=== PATIENT | male | born 1965 | race Caucasian/White ===

== ENCOUNTER 2019-02-20 17:37 | Emergency (ER) | payer BC, OTHER ==
[~2019-02-20] VITALS: Ht 170.2 cm; Wt 88.0 kg
[~2019-02-20 17:37] MED LIST: NOR10 PO; PRO40 PO; SUCR1TAB78 PO
[2019-02-20 17:57] VITALS: BP_SYST 147
--- NOTE | 2019-02-20 18:06 | NUR ---
Placed in room 1 . Placed on monitoring tech, blood pressure machine and pulse oximeter. To gown for exam. Side rails up. Report given to Pavan WALTON.
--- NOTE | 2019-02-20 18:09 | NUR ---
ER PA HARMON at bedside examining patient.
[2019-02-20] MEDS ORDERED: ONDANSETRON HCL 4 MG/2 ML VIAL IVP ONE ×2 (18:15→20:45)
[2019-02-20] MEDS ORDERED: NACL 0.9% 1,000 ML IV ONE (18:15)
--- NOTE | 2019-02-20 18:22 | NUR ---
PATIENT CAME IN COMPLAINING OF NAUSEA AND VOMITING SINCE TUESDAY. PATIENT CURRENTLY VOMITING. PATIENT COMPLAINING OF PAIN 7/10IN EPIGASTRIC AREA. PATIENT HAS HISTORY OF GASTRITIS. PATIENT WENT TO URGENT CARE AND TOLD HIM POTASSIUM LOW BUT PATIENT NOT SURE HOW LOW. PATIENT LETHARGIC AND WEAK. PATIENT ALERT AND ORIENTED X4.
--- NOTE | 2019-02-20 18:45 | NUR ---
PATIENT GETTING LABS DRAWN AT BEDSIDE.
[2019-02-20] MEDS ORDERED: MORPHINE 4 MG/ML INJ. SYRINGE IVP ONE (19:15)
--- NOTE | 2019-02-20 19:15 | NUR ---
ENDORSED CARE TO ISABELLE CASTELLANOS.
--- NOTE | 2019-02-20 19:15 | NUR ---
Pt resting quietly, easily awakened. Pt c/o abdominal pain, to be medicated. VSS. Family member at bedside.
[2019-02-20 19:16] LABS: BASOPHILS # (AUTO) 0.1 K/uL (0.0-0.2); BASOPHILS % (AUTO) 0.7 % (0.0-2.0); HEMATOCRIT 46.6 % (36-54); HEMOGLOBIN 16.2 g/dL (14.0-18.0); LYMPHOCYTES # (AUTO) 0.6 K/uL (1.0-5.5); LYMPHOCYTES % (AUTO) 6.8 % (20.5-51.5); MEAN CORPUSCULAR HEMOGLOBIN 32 pg (27-31); MEAN CORPUSCULAR HGB CONC 35 % (32-36); MEAN CORPUSCULAR VOLUME 93 fL (79.0-98.0); MONOCYTES # (AUTO) 0.3 K/uL (0.0-1.0); MONOCYTES % (AUTO) 3.3 % (1.7-9.3); NEUTROPHILS # (AUTO) 7.3 K/uL (1.8-7.7); NEUTROPHILS % (AUTO) 89.2 % (40.0-70.0); PLATELET COUNT (AUTO) 192 K/uL (130-430); RED BLOOD CELL COUNT(AUTO) 5.01 MIL/uL (4.2-6.2); RED CELL DISTRIBUTION WIDTH 13.1 % (9.0-15.0); WHITE BLOOD COUNT (AUTO) 8.2 K/uL (4.8-10.8)
[2019-02-20 19:20] LABS: CALCIUM 9.1 mg/dL (8.4-11.0); CREATININE 0.82 mg/dL (0.55-1.30); TOTAL BILIRUBIN 1.2 mg/dL (0.0-1.0)
--- NOTE | 2019-02-20 19:20 | NUR ---
Upon awakening, pt c/o abdominal pain 01/27. Dr. Driver notified.
--- NOTE | 2019-02-20 19:29 | NUR ---
Pt to CT via stretcher in stable condition.
[2019-02-20 19:33] LABS: POTASSIUM 2.9 mmol/L (3.5-5.1)
--- NOTE | 2019-02-20 19:39 | NUR ---
Pt returns from CT. No needs verbalized at this time.
[2019-02-20] MEDS ORDERED: POTASSIUM CHLORIDE 20 MEQ/PKT PACKET PO ONE (20:15)
[2019-02-20 20:38] LABS: BILIRUBIN,URINE NEGATIVE (NEGATIVE); BLOOD, URINE 1+ (NEGATIVE); CLARITY/URINE SL HAZY (CLEAR); COLOR,URINE YELLOW (YELLOW); GLUCOSE,URINE NEGATIVE (NEGATIVE); KETONES,URINE 2+ (NEGATIVE); LEUKOCYTE ESTERASE ,URINE NEGATIVE (NEGATIVE); NITRITE, URINE NEGATIVE (NEGATIVE); PROTEIN URINE NEGATIVE (NEGATIVE)
--- NOTE | 2019-02-20 20:40 | NUR ---
Brody Townsend, PAC at bedside to update on POC.
[2019-02-20] MEDS ORDERED: MORPHINE 2 MG/ML INJ. SYRINGE IVP ONE (20:45)
--- NOTE | 2019-02-20 21:10 | NUR ---
Pt c/o abdominal pain 01/27. Dr. Driver notified.
[2019-02-20 21:21] LABS: BACTERIA,URINE None Seen /HPF (None Seen); WBC,URINE 0-3 /HPF (0-3)
[2019-02-20 21:22] LABS: URINE AMORPHOUS PHOSPHATES 2+ /HPF (None Seen)
[2019-02-20 21:50] VITALS: BP_SYST 122
--- NOTE | 2019-02-20 21:50 | NUR ---
Patient given written and verbal discharge instructions and verbalizes understanding. ER MD discussed with patient the results and treatment provided. Patient in stable condition. ID arm band removed. IV catheter removed intact and dressing applied, no active bleeding. Rx of Bentyl, Reglan, Protonix given. Patient educated on pain management and to follow up with PMD. Pain Scale 2/10. Opportunity for questions provided and answered. Medication side effect fact sheet provided.
== END 2019-02-20 21:50 | disposition home or self-care (01) ==
LOC: SED 17:37
DX: K29.50 Unspecified chronic gastritis without bleeding (principal); R11.10 Vomiting, unspecified; E87.6 Hypokalemia; K21.9 Gastro-esophageal reflux disease without esophagitis; I10 Essential (primary) hypertension; Z79.899 Other long term (current) drug therapy
CPT/HCPCS: 36415; 74176; 80053; 81000; 83690; 85025; 96361; 96374; 96375; 96376; 99284; J2270 ×2; J2405; J7030

== ENCOUNTER 2022-01-04 06:58 | Day surgery (SDC) | payer OTHER ==
[~2022-01-04] VITALS: Ht 170.2 cm; Wt 97.5 kg
[2022-01-04] MEDS ORDERED: CEFAZOLIN SOD 1 GM in D5W 50 ML IV ONE (07:00)
[2022-01-04] MEDS ORDERED: BUPIVACAINE LIPOSOME/PF 266 MG/20 ML VIAL INFIL ONE (10:13)
[2022-01-04] MEDS ORDERED: SEVOFLURANE 15 MIN GAS INH ONE (10:28)
[2022-01-04] MEDS ORDERED: NS IRRIG SOLN 1000 ML IR ONE (10:28)
[2022-01-04] MEDS ORDERED: GLYCOPYRROLATE 0.2 MG/ML VIAL IJ ONE (10:28)
[2022-01-04] MEDS ORDERED: KETOROLAC TROMETHAMINE 30 MG VIAL IVP ONE (10:28)
[2022-01-04] MEDS ORDERED: NEOSTIGMINE METHYLSULFATE 1 MG/ML, 10 ML VIAL IVP ONE (10:28)
[2022-01-04] MEDS ORDERED: BUPIVACAINE /EPINEPHRINE/PF 0.5% 30 ML VIAL INJ ONE (10:28)
[2022-01-04] MEDS ORDERED: LR 1,000 ML IV.SOLN IV ONE (10:28)
[2022-01-04] MEDS ORDERED: NORMAL SALINE 10 ML VIAL IVP ONE (10:28)
[2022-01-04] MEDS ORDERED: ROCURONIUM BROMIDE 10 MG/ML (ZEMURON) IV ONE (10:28)
[2022-01-04] MEDS ORDERED: ONDANSETRON HCL 4 MG/2 ML VIAL IVP PRN (11:45)
[2022-01-04] MEDS ORDERED: KETOROLAC TROMETHAMINE 30 MG VIAL IVP PRN (11:45)
[2022-01-04] MEDS ORDERED: HYDROmorphone 1 MG/ML INJ. CARTRIDGE IVP PRN ×2 (11:45→12:00)
[2022-01-04] MEDS ORDERED: LR 1,000 ML IV SCH (11:45)
[2022-01-04] MEDS ORDERED: HYDROcodone/ACETAMIN 5-325 MG TAB (NORCO/ VICODIN) PO PRN ×2 (12:00)
[2022-01-04 12:55] VITALS: BP_SYST 130
== END 2022-01-04 14:30 | disposition home or self-care (01) ==
LOC: SDS 06:58 → SMU 07:01 → SDS 14:30
PROVIDERS: ATTEND Colon & Rectal Surgery
DX: K64.2 Third degree hemorrhoids (principal); K64.8 Other hemorrhoids; I10 Essential (primary) hypertension; E78.5 Hyperlipidemia, unspecified; Z79.899 Other long term (current) drug therapy; Z20.822 Contact with and (suspected) exposure to COVID-19
CPT/HCPCS: 36415 ×2; 46260; 88304; 87426; U0003; C9290; J3490 ×2; J0690; J1885; J7060; J7120; J2710